=== PATIENT | male | born 1955 ===

== ENCOUNTER 2018-11-19 15:07 | Outpatient (CLI) | payer OTHER ==
[~2018-11-19] VITALS: Ht 180.3 cm; Wt 99.3 kg
== END 2018-11-19 15:35 | disposition home or self-care (01) ==
LOC: OFIC 805 15:07
DX: R09.81 Nasal congestion (principal); H69.83 Other specified disorders of Eustachian tube, bilateral

== ENCOUNTER 2019-03-15 15:29 | Outpatient (CLI) | payer OTHER ==
[~2019-03-15] VITALS: Ht 152.4 cm; Wt 99.3 kg
== END 2019-03-15 15:45 | disposition home or self-care (01) ==
LOC: OFIC 805 15:29
DX: H69.90 Unspecified Eustachian tube disorder, unspecified ear (principal); R09.81 Nasal congestion; J30.89 Other allergic rhinitis; H92.01 Otalgia, right ear